=== PATIENT | female | born 1995 | race Caucasian/White ===

== ENCOUNTER 2016-12-12 01:16 | Emergency (ER) | payer OTHER, MEDICAID ==
[~2016-12-12] VITALS: Ht 165.1 cm; Wt 123.8 kg
[~2016-12-12 01:16] MED LIST: PREN29TA PO
--- NOTE | 2016-12-12 03:08 | PD ---
HPI Chief Complaint Contractions Date Seen: Dec 12, 2016 Travel History International Travel<30 Days: No Contact w/Intl Traveler<30Days: No Known Affected Area: No History of Present Illness HPI Pt is a with EDC 12-15-2016 making her 39 weeks and 4 days present. Pt presented to ER at [place] with c/o contractions. Pt was examined and noted to be FT/100% effaced with regular contractions and subsequently transferred here by EMS. Pt states she has been deja all afternoon. she denies any vaginal bleeding or leaking. Active movements. Pt states she had care in [place] before moving to the [place] area. She does not have current care. Para: 0 : 1 Miscarriage: 0 : 0 History Past Medical History Medical History: Denies Significant Hx Past Surgical History Surgical History: No Previous Surgery Family History Family History: Negative Social History Alcohol Use: No Tobacco Use: No Substance Abuse: No Allergies-Medications (Allergen,Severity, Reaction): Uncoded Allergies: seafood (Allergy, Severe, Anaphylaxis, 12/12/16) Home Meds Reported Medications Vit-Iron Carbonyl ( Plus Iron 29-1 mg)1 Tab Tab1 Tab PO DAILY #30 TAB Ref 0 12/12/16 Review of Systems Except as stated in HPI: all other systems reviewed are Neg Physical Exam Narrative GENERAL: Well-nourished, well-developed patient. SKIN: Warm and dry. HEAD: Normocephalic and atraumatic. EYES: No scleral icterus. No injection or drainage. ENT: No nasal drainage noted. Mucous membranes pink. Airway patent. NECK: Supple, trachea midline. No JVD. CARDIOVASCULAR: Regular rate and rhythm without murmurs, gallops, or rubs. RESPIRATORY: Breath sounds equal bilaterally. No accessory muscle use. BREASTS: Bilateral exam showed no masses , no retractions, no nipple discharge. ABDOMEN/GI: Abdomen soft, non-tender, bowel sounds present, no rebound, no guarding Gravid to [-] weeks size Fundal Height: [-] GENITOURINARY: External Genitalia: intact and normal in appearance BUS glands: [-] Cervix: [soft] Dilatation: [1 cm] Effacement: [70%] Station: [- 2] Presentation: [vertex] Membranes: [intact ] Uterine Contractions: [about 10 to 15 minutes] FHT's: Category: [1] Baseline: [130] Reactive: [-] Variability: [moderate] Decels: [none] EXTREMITIES: No cyanosis or edema. BACK: Nontender without obvious deformity. No CVA tenderness. NEUROLOGICAL: Awake and alert. Motor and sensory grossly within normal limits. Five out of 5 muscle strength in all muscle groups. Normal speech. Data Data Vital Signs Reviewed: Yes [facility] Medical Record Reviewed: Yes Interpretation(s) Pt with limited care. Presents with contractions Cervix is 1cm / 70%/ -2 unchanged after 1 hour Diagnosis Diagnosis: Primary Impression: False labor after 37 completed weeks of gestation Additional Impression: Limited care in third trimester Disposition: 01 DISCHARGE HOME Loyd Bravo MD Dec 12, 2016 03:08
[2016-12-12 06:13] LABS: CHLAMYDIA PCR NOT DETECTED (NOT DETECT); NEISSERIA PCR NOT DETECTED (NOT DETECT)
== END 2016-12-12 06:07 | disposition home or self-care (01) ==
LOC: HOBED 01:16
DX: O47.1 False labor at or after 37 completed weeks of gestation (principal); O09.33 Supervision of pregnancy with insufficient antenatal care, third trimester; Z3A.39 39 weeks gestation of pregnancy
CPT/HCPCS: 80053; 81001; 83735; 85025; 86592; 86703; 87081; 87086; 87340; 87491; 87591; 99284; J7050; 36415; 59025; 99285

== ENCOUNTER 2016-12-19 15:37 | Emergency (ER) | payer OTHER, MEDICAID ==
--- NOTE | 2016-12-19 16:25 | PD ---
HPI Chief Complaint Contractions Date Seen: Dec 19, 2016 Time Seen: 16:10 Travel History International Travel<30 Days: No Contact w/Intl Traveler<30Days: No Known Affected Area: No History of Present Illness HPI 21-year-old primigravida at 40 weeks 3 days gestation who presents with possible labor. She denies any leakage of fluid, bleeding or decreased movement. Weeks Gestation: 40 Para: 0 : 1 History Past Medical History Medical History: Denies Significant Hx Obstetric History Obstetric History Limited care in [facility] prior to moving here 2 weeks ago. She reports having an early ultrasound which established her due date. GBS positive Past Surgical History Surgical History: No Previous Surgery Social History Alcohol Use: No Tobacco Use: No Substance Abuse: No Allergies-Medications (Allergen,Severity, Reaction): Uncoded Allergies: seafood (Allergy, Severe, Anaphylaxis, 12/12/16) Home Meds Reported Medications Vit-Iron Carbonyl ( Plus Iron 29-1 mg) 1 Tab Tab, 1 TAB PO DAILY for Nutritional Supplement, #30 TAB 0 Refills 12/12/16 Review of Systems Except as stated in HPI: all other systems reviewed are Neg Physical Exam Narrative GENERAL: Well-nourished, well-developed patient. SKIN: Warm and dry. HEAD: Normocephalic and atraumatic. EYES: No scleral icterus. No injection or drainage. ENT: No nasal drainage noted. Mucous membranes pink. Airway patent. NECK: Supple, trachea midline. No JVD. CARDIOVASCULAR: Regular rate and rhythm without murmurs, gallops, or rubs. RESPIRATORY: Breath sounds equal bilaterally. No accessory muscle use. BREASTS: Bilateral exam showed no masses , no retractions, no nipple discharge. ABDOMEN/GI: Abdomen soft, non-tender, bowel sounds present, no rebound, no guarding Gravid to [-] weeks size Fundal Height: [-39] GENITOURINARY: External Genitalia: intact and normal in appearance BUS glands: [-Negative] Cervix: [-] Dilatation: [-1] Effacement: [-40] Station: [-3-] Presentation: [-] Membranes: [intact] Uterine Contractions: [None-] FHT's: Category: [1-] Baseline: [-] Reactive: [Yes-] Variability: [-] Decels: [-] EXTREMITIES: No cyanosis or edema. BACK: Nontender without obvious deformity. No CVA tenderness. NEUROLOGICAL: Awake and alert. Motor and sensory grossly within normal limits. Five out of 5 muscle strength in all muscle groups. Normal speech. Data Data Vital Signs Reviewed: Yes Group B Strep: Positive MDM Medical Record Reviewed: Yes Narrative Course / MDM Assessment: 40+ week intrauterine not in labor Plan: Labor precautions were reviewed with the patient. She'll follow up as needed. We discussed returning to arrange induction planning if she is not delivered by 41 weeks. Diagnosis Diagnosis: Primary Impression: 40 weeks gestation of Additional Impression: Irregular contractions Disposition: 01 DISCHARGE HOME Condition: Good Rex Francois MD Dec 19, 2016 16:24
== END 2016-12-19 16:56 | disposition home or self-care (01) ==
LOC: HOBED 15:37
DX: O47.1 False labor at or after 37 completed weeks of gestation (principal); Z3A.40 40 weeks gestation of pregnancy
CPT/HCPCS: 59025

== ENCOUNTER 2016-12-22 16:35 | Emergency (ER) | payer OTHER, MEDICAID ==
[2016-12-22] MEDS ORDERED: MONUPAK PO (17:52)
--- NOTE | 2016-12-22 17:52 | PD ---
HPI Chief Complaint Contractions and pressure Date Seen: Dec 22, 2016 Travel History International Travel<30 Days: No Contact w/Intl Traveler<30Days: No Known Affected Area: No History of Present Illness HPI Patient is a 21-year-old white female at 41 weeks with very little care recently moved here from [place]. She states she did have an early ultrasound gave her a due date that would put her at 41 weeks now we have no documentation of that, she complains of contractions and pressure. No bleeding or ruptured membranes. Baby is active. heart rate tracing is reactive and she is deja every 3-4 minutes. Weeks Gestation: 41 Para: 0 : 1 History Social History Narrative Social History Patient recently relocated here from [place] of and very little care but did have an early ultrasound she describes we gave her a due date and put her 41 weeks Alcohol Use: No Tobacco Use: No Substance Abuse: No Allergies-Medications (Allergen,Severity, Reaction): Uncoded Allergies: seafood (Allergy, Severe, Anaphylaxis, 12/12/16) Home Meds Reported Medications Vit-Iron Carbonyl ( Plus Iron 29-1 mg) 1 Tab Tab, 1 TAB PO DAILY for Nutritional Supplement, #30 TAB 0 Refills 12/12/16 Review of Systems General / Constitutional: No: Fever, Weight Gain, Chills, Other Eyes: No: Diploplia, Blurred Vision, Visual changes, Pain, Photophobia HENT: No: Headaches, Vertigo, Lightheadedness Cardiovascular: No: Irregular Rhythm, Chest Pain or Discomfort, Palpitations, Tachycardia, Syncope, Varicosities, Edema, Cyanosis Respiratory: No: Cough, Short of Breath, Other Gastrointestinal: Abdominal Pain, No: Nausea, Vomiting, Diarrhea Genitourinary: No: Decreased Urinary Output, Oliguria Musculoskeletal: No: Limited ROM, Weakness, Cramping, Edema, Pain Skin: No Rash, No Itching, No Dryness, No Lumps, No Change in Pigmentation, No Change in Nails, No Alopecia, No Lesions Neurologic: No: Weakness, Dizziness, Syncope, Focal Abnormalities, Coordination Problem, Headache, Slurred Speech, Seizures Psychiatric: No: Depression, Suicidal Ideations, Homicidal Ideation Endocrine: No: Heat Intolerance, Cold Intolerance, Polydipsia, Polyuria, Other Physical Exam Narrative GENERAL: Well-nourished, well-developed patient. SKIN: Warm and dry. HEAD: Normocephalic and atraumatic. EYES: No scleral icterus. No injection or drainage. ENT: No nasal drainage noted. Mucous membranes pink. Airway patent. NECK: Supple, trachea midline. No JVD. CARDIOVASCULAR: Regular rate and rhythm without murmurs, gallops, or rubs. RESPIRATORY: Breath sounds equal bilaterally. No accessory muscle use. BREASTS: Bilateral exam showed no masses , no retractions, no nipple discharge. ABDOMEN/GI: Abdomen soft, non-tender, bowel sounds present, no rebound, no guarding Gravid to [40-] weeks size Fundal Height: [40-] GENITOURINARY: External Genitalia: intact and normal in appearance BUS glands: [-] Cervix: [-] Dilatation: [1-] Effacement: [-60] Station: [-3] Presentation: [vtx-] Membranes: [intact ] Uterine Contractions: [q 3-4 -] FHT's: Category: [-1] Baseline: [133-] Reactive: [-yes] Variability: [-mod] Decels: [-none] EXTREMITIES: No cyanosis or edema. BACK: Nontender without obvious deformity. No CVA tenderness. NEUROLOGICAL: Awake and alert. Motor and sensory grossly within normal limits. Five out of 5 muscle strength in all muscle groups. Normal speech. Data Data Labs Urine dip showed leukocyte esterase positive moderate with 2+ protein, and positive ketones will treat with Monurol prescription MDM Interpretation(s) Patient is 21-year-old white female at 41 weeks currently unregistered medical care just moved here 2 weeks ago from [place] where she had very little care there. She did have an early ultrasound according her this gave her the due date would put her now at 41 weeks, we have no documentation of any of that and patient doesn't have any either. She complained of contractions and she presented she is deja every for 5 minutes. The heart rate tracing is reactive. Cervix is 160 and -2 vertex and scalp stim a gave us very reactive strip and lots of accelerations with good variability. Urine dip showed positive leukocyte esterase and 2+ protein and her blood pressures are normal. Probable mild UTI Plan Plan to treat the patient's UTI with Monurol prescription, will set patient up for induction of labor's following Tuesday just 5 days from now. With the patient presented the night before for Cervidil or Cytotec and then induction of labor the following day. Diagnosis Diagnosis: Primary Impression: False labor after 37 completed weeks of gestation Additional Impression: UTI (urinary tract infection) during Disposition: 01 DISCHARGE HOME Condition: Stable Scripts Fosfomycin Packet (Monurol Packet) 3 Gm Powderpack 3 GM PO ONCE for Urinary Symptom Managemen for 1 Day, PKT Prov: Alf Baca II, MD 12/22/16 Alf Baca II, MD Dec 22, 2016 17:52
== END 2016-12-22 17:58 | disposition home or self-care (01) ==
LOC: HOBED 16:35
DX: O47.1 False labor at or after 37 completed weeks of gestation (principal); O23.43 Unspecified infection of urinary tract in pregnancy, third trimester; Z3A.41 41 weeks gestation of pregnancy
CPT/HCPCS: 59025; 84112

== ENCOUNTER 2016-12-26 21:18 | Inpatient (IN) | payer MEDICAID, OTHER ==
[2016-12-26] VITALS (7 sets, daily range): BP systolic 117–140; BP diastolic 69–103; PULSE 78–99; RESP 20; TEMP 98.4
[~2016-12-26] VITALS: Ht 165.1 cm; Wt 123.8 kg
[~2016-12-26 21:18] MED LIST changes: +MONUPAK PO
[2016-12-26] MEDS ORDERED: LACTATED RINGER'S 1000 ML INJ 1,000 ML IV PRN (21:46)
--- NOTE | 2016-12-26 21:46 | HHI.HP ---
HPI Chief Complaint Elective admission for IOL. 41.4 weeks gestation Travel History International Travel<30 Days: No Contact w/Intl Traveler<30Days: No Known Affected Area: No History of Present Illness HPI Pt is a 21 yo , here for IOL. EDC 01-15-2017. Pt has minimal care in [place], and only seen at OB triage since arriving her 3 weeks ago. Denies any current contractions. No vaginal bleeding or leaking. GBS positive. Admits to movements. Weeks Gestation: 41 Para: 0 : 1 History Past Medical History Medical History: Denies Significant Hx Past Surgical History Surgical History: No Previous Surgery Family History Family History: Negative Social History Narrative Social History Minimal care. Pt states she had a few visits in [place]. Has been in [place] past 3 weeks and only seen at OB Triage. Alcohol Use: No Tobacco Use: No Substance Abuse: No Allergies-Medications (Allergen,Severity, Reaction): Uncoded Allergies: seafood (Allergy, Severe, Anaphylaxis, 12/12/16) Home Meds Active Scripts Fosfomycin Packet (Monurol Packet) 3 Gm Powderpack, 3 GM PO ONCE for Urinary Symptom Managemen for 1 Day, PKT Prov:Alf Baca II, MD 12/22/16 Reported Medications Vit-Iron Carbonyl ( Plus Iron 29-1 mg) 1 Tab Tab, 1 TAB PO DAILY for Nutritional Supplement, #30 TAB 0 Refills 12/12/16 Review of Systems Except as stated in HPI: all other systems reviewed are Neg Physical Exam Narrative GENERAL: Well-nourished, well-developed patient. SKIN: Warm and dry. HEAD: Normocephalic and atraumatic. EYES: No scleral icterus. No injection or drainage. ENT: No nasal drainage noted. Mucous membranes pink. Airway patent. NECK: Supple, trachea midline. No JVD. CARDIOVASCULAR: Regular rate and rhythm without murmurs, gallops, or rubs. RESPIRATORY: Breath sounds equal bilaterally. No accessory muscle use. BREASTS: Bilateral exam showed no masses , no retractions, no nipple discharge. ABDOMEN/GI: Abdomen soft, non-tender, bowel sounds present, no rebound, no guarding Gravid to [41] weeks size Fundal Height: [39] GENITOURINARY: External Genitalia: intact and normal in appearance BUS glands: [wnl] Cervix: [soft-] Dilatation: [1cm-] Effacement: [50%-] Station: [-3] Presentation: [vertex] Membranes: [intact] Uterine Contractions: [4-5 minutes] FHT's: Category: [1] Baseline: [140s] Reactive: [-] Variability: [minimal] Decels: [-] EXTREMITIES: No cyanosis or edema. BACK: Nontender without obvious deformity. No CVA tenderness. NEUROLOGICAL: Awake and alert. Motor and sensory grossly within normal limits. Five out of 5 muscle strength in all muscle groups. Normal speech. Caprini VTE Risk Assessment Caprini VTE Risk Assessment: No/Low Risk (score <= 1) Caprini Risk Assessment Model Point Value = 1 Point Value = 2 Point Value = 3 Point Value = 5 Age 41-60 Minor surgery BMI > 25 kg/m2 Swollen legs Varicose veins or History of unexplained or recurrent spontaneous Oral contraceptives or hormone replacement Sepsis (< 1 month) Serious lung disease, including pneumonia (< 1 month) Abnormal pulmonary function Acute myocardial infarction Congestive heart failure (< 1 month) History of inflammatory bowel disease Medical patient at bed rest Age 61-74 Arthroscopic surgery Major open surgery (> 45 min) Laparoscopic surgery (> 45 min) Malignancy Confined to bed (> 72 hours) Immobilizing plaster cast Central venous access Age >= 75 History of VTE Family history of VTE Factor V Leiden Prothrombin [id number] Lupus anticoagulant Anticardiolipin antibodies Elevated serum homocysteine Heparin-induced thrombocytopenia Other congenital or acquired thrombophilia Stroke (< 1 month) Elective arthroplasty Hip, pelvis, or leg fracture Acute spinal cord injury (< 1 month) Prophylaxis Regimen Total Risk Factor Score Risk Level Prophylaxis Regimen 0-1 Low Early ambulation 2 Moderate Order ONE of the following: *Sequential Compression Device (SCD) *Heparin 5000 units SQ BID 3-4 Higher Order ONE of the following medications: *Heparin 5000 units SQ TID *Enoxaparin/Lovenox 40 mg SQ daily (WT < 150 kg, CrCl > 30 mL/min) *Enoxaparin/Lovenox 30 mg SQ daily (WT < 150 kg, CrCl > 10-29 mL/min) *Enoxaparin/Lovenox 30 mg SQ BID (WT < 150 kg, CrCl > 30 mL/min) AND/OR *Sequential Compression Device (SCD) 5 or more Highest Order ONE of the following medications: *Heparin 5000 units SQ TID (Preferred with Epidurals) *Enoxaparin/Lovenox 40 mg SQ daily (WT < 150 kg, CrCl > 30 mL/min) *Enoxaparin/Lovenox 30 mg SQ daily (WT < 150 kg, CrCl > 10-29 mL/min) *Enoxaparin/Lovenox 30 mg SQ BID (WT < 150 kg, CrCl > 30 mL/min) AND *Sequential Compression Device (SCD) Data Data Vital Signs Reviewed: Yes Group B Strep: Positive Assessment/Plan Assessment and Plan Post-term IOL 41 weeks and 4 days Dash too frequently ( 4-5minutes) for cervical ripening using Cervidil or Cytotec. Plan Pitocin. Loyd Bravo MD Dec 26, 2016 21:46
[2016-12-26 22:00] LABS: AUTOMATED NEUTROPHIL # 7.5 TH/MM3 (1.8-7.7); BASOPHIL % 0.2 % (0.0-2.0); EOSINOPHIL # 0.1 TH/MM3 (0-0.4); EOSINOPHIL % 0.9 % (0.0-4.0); HEMATOCRIT 30.2 % (35.0-46.0); HEMO FLAGS DIFF FINAL; LYMPH % 12.2 % (9.0-44.0); LYMPHOCYTE # 1.1 TH/MM3 (1.0-4.8); MEAN CELL VOLUME 80.7 FL (80.0-100.0); MEAN CORPUSCULAR HEMOGLOBIN 27.3 PG (27.0-34.0); MEAN CORPUSCULAR HGB CONC 33.8 % (32.0-36.0); MONO % 6.2 % (0.0-8.0); NEUT % 80.5 % (16.0-70.0); PLATELET COUNT 186 TH/MM3 (150-450); RED BLOOD COUNT 3.74 MIL/MM3 (4.00-5.30); RED CELL DISTRIBUTION WIDTH 14.9 % (11.6-17.2); WHITE BLOOD COUNT 9.3 TH/MM3 (4.0-11.0)
[2016-12-26] MEDS ORDERED: MINERAL OIL 10 ML VIAL TOPICAL PRN (22:00)
[2016-12-26] MEDS ORDERED: LIDOCAINE HCL 1% 50 ML VIAL I-DERMAL PRN (22:00)
[2016-12-26] MEDS ORDERED: CITRIC ACID-SODIUM CITRATE LIQ 30 ML UDC PO SCH (22:00)
[2016-12-26] MEDS ORDERED: OXYTOCIN 30 UNITS-500ML PREMIX 500 ML IV SCH (22:00)
[2016-12-26] MEDS ORDERED: OXYTOCIN 30 UNITS-500ML PREMIX 500 ML IV ONE (22:00)
[2016-12-26] MEDS ORDERED: PENICILLIN G POTASSIUM INJ 5,000,000 UNITS in SODIUM CHLORIDE 0.9% INJ 100 ML IV ONE (22:00)
[2016-12-26] MEDS ORDERED: LIDOCAINE HCL 1% 50 ML VIAL INFIL PRN (22:00)
[2016-12-26] MEDS ORDERED: SODIUM CHLORID 0.9% 500 ML INJ 500 ML IV PRN (22:00)
[2016-12-26 22:03] LABS: BLOOD, URINE SMALL (NEG); CALCIUM OXALATE CRYSTALS,URINE FEW /hpf; COMMENT (UR) CULTURE INDICATED; CULTURE IF INDICATED CULTURE INDICATED; GLUCOSE,URINE NEG (NEG); KETONE, URINE NEG (NEG); MUCUS URINE FEW /lpf (OCC); NITRITE,URINE NEG (NEG); SQUAMOUS EPITHELIAL CELL URINE 2 /hpf (0-5); URINE COLOR YELLOW (YELLW/STRAW)
[2016-12-26] MEDS ORDERED: SODIUM CHLOR 0.9% 1000 ML INJ 1,000 ML IV PRN (22:06)
--- NOTE | 2016-12-26 22:27 | PD.LABORPN ---
Subjective Subjective Pt comfortable Objective Objective Pelvic Exam: Cervix: [soft] Dilatation: [1cm] Effacement: [50%] Station: [-3] Presentation: [vertex] Membranes: [intact] Uterine Contractions: [4-5 minutes] FHT's: Category: [1-] Baseline: [140s] Reactive: [-] Variability: [-] Decels: [none] Wolf balloon cervical ripening done. F27 folet tip inserted past cervical internal os, and balloon inflated with 25cc saline. balloon then pulled back against cervix and taped to left thigh. Weeks Gestation: 41 Gest Age Assessed Date: Dec 26, 2016 Gest Age Assessed Time: 20:00 Pt started active labor?: No Medical induction of labor?: No Artificial rupture of membrane: No Assessment/Plan Assessment and Plan 41.4 weeks. Term IOL. Dash too frequently for Misoprostil or Cervidil. Cervical balloon ripening statrted. Expectant. Will hold Pitocin for now. Will start GBS prophylaxis at midnight. Loyd Bravo MD Dec 26, 2016 22:27
[2016-12-26] MEDS ORDERED: fentaNYL 2MCG-BUPIV 0.125% INJ 100 ML ONE (23:22)
[2016-12-27] VITALS (87 sets, daily range): BP systolic 102–155; BP diastolic 47–111; PULSE 66–135; RESP 18–20; TEMP 98.1–99.2
[2016-12-27] MEDS ORDERED: PENICILLIN G POTASSIUM INJ 5,000,000 UNITS in SODIUM CHLORIDE 0.9% INJ 100 ML IV ONE ×2
[2016-12-27] MEDS: LACTATED RINGER'S 1000 ML INJ 1,000 ML IV SCH ×3 (00:45→07:35)
[2016-12-27] MEDS ORDERED: PENICILLIN G POTASSIUM INJ 2,500,000 UNITS in SODIUM CHLORIDE 0.9% INJ 100 ML IV SCH (02:00)
[2016-12-27] MEDS: PENICILLIN G POTASSIUM INJ 2,500,000 UNITS in SODIUM CHLORIDE 0.9% INJ 100 ML IV SCH ×4 (04:00→16:00)
--- NOTE | 2016-12-27 04:52 | PD.LABORPN ---
Subjective Subjective Comfortable with epidural Objective Vital Signs Vital Signs Date Time Temp Pulse Resp B/P (MAP) Pulse Ox O2 Delivery O2 Flow Rate FiO2 12/27/16 04:16 135 109/71 (84) 12/27/16 04:07 111/64 (80) 12/27/16 04:07 84 12/27/16 04:03 98.6 20 12/27/16 03:31 76 108/62 (77) 12/27/16 03:01 74 102/47 (65) 12/27/16 02:31 82 119/60 (79) 12/27/16 02:10 20 12/27/16 02:01 92 111/60 (77) 12/27/16 01:30 99.1 12/27/16 01:30 20 12/27/16 01:29 86 114/60 (78) 12/27/16 00:19 91 117/54 (75) 12/26/16 23:55 88 12/26/16 23:51 92 124/73 (90) 12/26/16 23:46 80 127/69 (88) 12/26/16 23:41 85 135/79 (97) 12/26/16 23:35 95 117/103 (108) 12/26/16 23:32 99 140/85 (103) 12/26/16 23:22 20 12/26/16 23:00 98.4 12/26/16 23:00 78 20 124/74 (91) Objective Pelvic Exam: Cervix: [soft] Dilatation: [4cm] Effacement: [80%] Station: [-2 to-3] Presentation: [vertex] Membranes: [ ruptured] AROM done at 04:40 with AmniHook. meconium stained return.IUPC inserted Uterine Contractions: [1-2 minutes] Pitocin at 1mu/min FHT's: Category: [1] Baseline: [130s] Reactive: [-] Variability: [-] Decels: [none] Weeks Gestation: 41 Gest Age Assessed Date: Dec 26, 2016 Gest Age Assessed Time: 20:00 Pt started active labor?: Yes Active labor start date: Dec 27, 2016 Active labor start time: 04:00 Medical induction of labor?: Yes Medical induction start date: Dec 26, 2016 Medical induction start time: 22:00 Artificial rupture of membrane: Yes Artificial ROM date: Dec 27, 2016 Artifical ROM time: 04:20 Assessment/Plan Assessment and Plan Postterm IOL. /maternal status reassuring. Meconium stained amniotic fluid at AROM. Continue Pitocin per protocol. Continue PCN for GBS prophylaxis Loyd Bravo MD Dec 27, 2016 04:52
[2016-12-27] MEDS ORDERED: fentaNYL 2MCG-BUPIV 0.125% INJ 100 ML ONE ×2 (06:23→12:51)
--- NOTE | 2016-12-27 09:53 | PD.LABORPN ---
Subjective Subjective Pt seen this am. Pt up in bed, having pain with contractions. Epidural in place. Objective Vital Signs Vital Signs Date Time Temp Pulse Resp B/P (MAP) Pulse Ox O2 Delivery O2 Flow Rate FiO2 12/27/16 09:35 96 12/27/16 09:30 98 113/68 (83) 12/27/16 09:30 101 113/68 (83) 12/27/16 09:25 93 12/27/16 09:24 20 12/27/16 09:20 98 12/27/16 09:15 110 12/27/16 09:05 91 12/27/16 09:00 92 131/81 (98) 12/27/16 09:00 88 12/27/16 08:55 90 12/27/16 08:50 99 12/27/16 08:45 101 12/27/16 08:30 79 20 133/74 (93) 12/27/16 08:30 98.1 12/27/16 08:15 20 12/27/16 08:01 81 134/77 (96) 12/27/16 07:34 90 140/78 (98) 12/27/16 07:30 82 125/91 (102) 12/27/16 07:09 20 12/27/16 07:00 79 123/72 (89) 12/27/16 06:30 78 119/64 (82) 12/27/16 06:23 20 12/27/16 05:58 85 109/57 (74) 12/27/16 05:58 98.7 20 12/27/16 05:30 110/57 (74) 12/27/16 05:01 132 127/97 (107) 12/27/16 05:00 20 12/27/16 04:48 97 12/27/16 04:48 107/56 (73) 12/27/16 04:16 135 109/71 (84) 12/27/16 04:07 111/64 (80) 12/27/16 04:07 84 12/27/16 04:03 98.6 20 12/27/16 03:31 76 108/62 (77) 12/27/16 03:01 74 102/47 (65) 12/27/16 02:31 82 119/60 (79) 12/27/16 02:10 20 12/27/16 02:01 92 111/60 (77) Objective Pelvic Exam: Cervix: [-] Dilatation: [-] Effacement: [-] Station: [-] Presentation: [-] Membranes: [intact or ruptured] Uterine Contractions: [-] FHT's: Category: [-] Baseline: [-] Reactive: [-] Variability: [-] Decels: [-] Weeks Gestation: 41 Gest Age Assessed Date: Dec 26, 2016 Gest Age Assessed Time: 20:00 Pt started active labor?: Yes Active labor start date: Dec 27, 2016 Active labor start time: 04:00 Medical induction of labor?: Yes Medical induction start date: Dec 26, 2016 Medical induction start time: 22:00 Artificial rupture of membrane: Yes Artificial ROM date: Dec 27, 2016 Artifical ROM time: 04:20 Assessment/Plan Assessment and Plan 21 yo in active labor. Pelvic exam: AROM @ 4:39AM meconium stain fluid, 6 , 90%, -2 IUP -continue expectant management -GBS positive, c/w PNC -pitocin @ 1mu/min -pt on epidural -plan for vaginal delivery Katy Bustamante MD R1 Dec 27, 2016 09:53
[2016-12-27] MEDS ORDERED: DIPHTH/TETANUS/ACEL PERTUSSIS (BOOSTER) 0.5 ML VIAL/PFS IM ONE (16:00)
[2016-12-27] MEDS ORDERED: MEASLES, MUMPS, RUBELLA VACCINE 0.5 ML VIAL SQ ONE (16:00)
[2016-12-27] MEDS ORDERED: WITCH HAZEL 50%/GLYCERIN 12.5% 40 PAD JAR TOPICAL PRN (16:30)
[2016-12-27] MEDS ORDERED: ALUMINUM/MAGNESIUM/SIMETH 30 ML CUP PO PRN (16:30)
[2016-12-27] MEDS ORDERED: ZOLPIDEM TARTRATE 5 MG TAB PO PRN (16:30)
[2016-12-27] MEDS ORDERED: oxyCODONE/ACETAMINOPHEN 5 MG/325 MG TAB PO PRN ×2 (16:30)
[2016-12-27] MEDS ORDERED: SODIUM CHLORIDE 0.9% FLUSH 10 ML FLUSH IV FLUSH PRN (16:30)
[2016-12-27] MEDS ORDERED: BENZOCAINE 20% TOPICAL SPRAY 60 ML CAN TOPICAL PRN (16:30)
[2016-12-27] MEDS ORDERED: DOCUSATE SODIUM 50 MG/SENNA 8.6 MG TAB PO PRN (16:30)
[2016-12-27] MEDS ORDERED: ONDANSETRON ODT 4 MG TAB PO PRN (16:30)
[2016-12-27] MEDS ORDERED: ACETAMINOPHEN 325 MG TAB PO PRN (16:30)
[2016-12-27] MEDS ORDERED: OXYTOCIN 30 UNITS-500ML PREMIX 500 ML IV SCH (16:30)
--- NOTE | 2016-12-27 16:32 | PD.OB.DELI ---
Weeks gestation: 41 Gest age assessed date: Dec 26, 2016 Gest age assessed time: 20:00 Pt started active labor?: Yes Active labor start date: Dec 27, 2016 Active labor start time: 04:00 Medical induction of labor?: Yes Medical induction start date: Dec 26, 2016 Medical induction start time: 22:00 Artificial rupture of membrane: Yes Artificial ROM date: Dec 27, 2016 Artifical ROM time: 04:20 Anesthesia: Epidural Episiotomy: Midline Vaginal Delivery: Normal Presentation: Occiput anterior Nuchal Cord: x1 Delayed cord clamping (45 sec): Yes : Male Delivery date: Dec 27, 2016 Delivery time: 15:53 One Minute : 8 Five Minute : 9 Weight: [id number] Placenta: Spontaneous delivery, Intact, 3 vessel cord Laceration: Episiotomy, 2 deg Repair: Chromic running Estimated blood loss: 250ml Additional Information assisted by Katy Dinero MD Dec 27, 2016 16:32
[2016-12-27] MEDS: IBUPROFEN 600 MG TAB PO PRN (17:31)
[2016-12-27] MEDS ORDERED: SODIUM CHLORIDE 0.9% FLUSH 10 ML FLUSH IV FLUSH SCH (21:00)
[2016-12-28 08:36] VITALS: BP 103/77; PULSE 97; RESP 20; TEMP 98.7
--- NOTE | 2016-12-28 11:47 | HHI.OB ---
Subjective Post Day: 1 Remarks Pt seen and examined this morning. day # 1 AFVSS overnight. Decreased lochia. Denies dysuria. No breast tenderness. She is feeding the baby via bottle. Appetite good. No nausea or vomiting. Patient has not had a bowel movement, but endorses bowel gas. Ambulating well. Denies calf pain or shortness of breath. Otherwise, she is doing well this morning and has no other concerns. Objective Vitals/I&O Vital Signs Date Time Temp Pulse Resp B/P (MAP) Pulse Ox O2 Delivery O2 Flow Rate FiO2 12/28/16 08:36 98.7 12/28/16 08:36 97 20 103/77 (86) 12/27/16 19:55 98.5 70 18 128/60 (82) 12/27/16 18:35 98.3 81 18 142/73 (96) 12/27/16 17:31 80 132/78 (96) 12/27/16 17:19 20 12/27/16 17:18 66 143/71 (95) 12/27/16 17:15 20 12/27/16 17:15 99.2 12/27/16 17:01 83 143/73 (96) 12/27/16 16:52 20 12/27/16 16:46 85 146/70 (95) 12/27/16 16:45 20 12/27/16 16:31 89 145/88 (107) 12/27/16 16:16 84 155/83 (107) 12/27/16 16:03 86 153/71 (98) 12/27/16 15:31 78 142/71 (94) 12/27/16 15:30 20 12/27/16 15:02 96 139/76 (97) 12/27/16 15:01 110 134/111 (119) 12/27/16 14:00 91 138/81 (100) 12/27/16 13:30 98 135/81 (99) 12/27/16 13:25 96 12/27/16 13:20 97 12/27/16 13:15 95 12/27/16 13:15 98.8 12/27/16 13:12 20 12/27/16 13:12 96 142/84 (103) 12/27/16 13:05 103 12/27/16 13:00 97 12/27/16 12:45 104 12/27/16 12:40 96 12/27/16 12:35 89 12/27/16 12:30 93 139/89 (106) 12/27/16 12:30 93 12/27/16 12:25 90 12/27/16 12:20 89 12/27/16 12:15 99 12/27/16 12:00 96 12/27/16 12:00 98 142/89 (106) 12/27/16 11:55 109 12/27/16 11:50 124 12/27/16 11:45 107 Objective Remarks GENERAL: Well-nourished, well-developed patient. CARDIOVASCULAR: Regular rate and rhythm without murmurs, gallops, or rubs. RESPIRATORY: Breath sounds equal bilaterally. No accessory muscle use. ABDOMEN/GI: Abdomen soft, non-tender. Fundus: Firm, non-tender at umbilicus. GENITOURINARY: Light to moderate bleeding. EXTREMITIES: No cyanosis or edema, non-tender, without signs of DVT. Medications and IVs Current Medications Medications (Trade) Dose Ordered Sig/Joyce Route Start Time Stop Time Status Last Admin Lactated Ringer's 1,000 ml @ 125 mls/hr Q8H IV 12/26/16 21:46 12/27/16 07:35 Lactated Ringer's 1,000 ml @ 3,000 mls/hr Q20M PRN IV 12/26/16 21:46 Sodium Chloride 500 ml @ 1,000 mls/hr ONCE PRN IV 12/26/16 22:00 12/28/16 21:59 Sodium Chloride 1,000 ml @ 100 mls/hr Q10H PRN IV 12/26/16 22:06 (Xylocaine 1% Inj (50 ml)) 0.1 ml UNSCH X1 PRN I-DERMAL 12/26/16 22:00 12/29/16 21:59 (Bicitra Liq) 30 ml EM[employer]ICINE MEDICAL DIRECTOR PO 12/26/16 22:00 12/30/16 21:59 (fentaNYL INJ) 50 mcg Q1H PRN IV PUSH 12/26/16 22:00 (fentaNYL INJ) 100 mcg Q1H PRN IV PUSH 12/26/16 22:00 (Xylocaine 1% Inj (50 ml)) 10 ml UNSCH X1 PRN INFIL 12/26/16 22:00 12/28/16 21:59 (Muri-Lube Oil) 10 ml UNSCH PRN TOPICAL 12/26/16 22:00 Oxytocin 500 ml @ 0 mls/hr TITRATE IV 12/26/16 22:00 12/27/16 00:49 (NS Flush) 2 ml BID IV FLUSH 12/27/16 21:00 (NS Flush) 2 ml UNSCH PRN IV FLUSH 12/27/16 16:30 (Tylenol) 650 mg Q4H PRN PO 12/27/16 16:30 (Motrin) 600 mg Q6H PRN PO 12/27/16 16:30 12/27/16 17:31 (Percocet 5-325 Mg) 1 tab Q4H PRN PO 12/27/16 16:30 (Percocet 5-325 Mg) 2 tab Q4H PRN PO 12/27/16 16:30 (Americaine 20% Top Spr) 1 spray Q4H PRN TOPICAL 12/27/16 16:30 12/27/16 17:32 (Tucks Pads) 1 applic QID PRN TOPICAL 12/27/16 16:30 12/27/16 17:32 (Samina-Colace) 2 tab Q12H PRN PO 12/27/16 16:30 (Ambien) 5 mg HS PRN PO 12/27/16 16:30 (Mag-Al Plus Susp Liq) 15 ml Q8H PRN PO 12/27/16 16:30 (Zofran Odt) 4 mg Q6H PRN PO 12/27/16 16:30 Assessment/Plan Problem List: (1) Spontaneous vaginal delivery ICD Codes: O80 - Encounter for full-term uncomplicated delivery Assessment and Plan 21 y/o female who is day # 1 s/p . -Continue routine care. -Motrin PRN pain. -Encouraged OOB. Advised pelvic rest for 6 wks. -Re: ctrl, she would like to discuss her options at her follow-up appointment. -Anticipate discharge tomorrow, 12/29. marko Baca MD Discharge Planning Likely tomorrow, 12/29, pending medical course. Yony Botello MD R2 Dec 28, 2016 11:47
[2016-12-28] MEDS: IBUPROFEN 600 MG TAB PO PRN (21:11)
[2016-12-28 21:15] VITALS: BP 136/79; PULSE 90; RESP 16; TEMP 99.1
[2016-12-29] MEDS ORDERED: SENN1TAB PO (07:11)
[2016-12-29] MEDS ORDERED: IBUP-232 PO (07:11)
--- NOTE | 2016-12-29 07:12 | HHI.DCPOC ---
Discharge Care Plan Diagnosis: (1) Spontaneous vaginal delivery Report Symptoms to Your Doctor -Temperature above 100.5 degrees -Redness, of incision or excessive or foul smelling drainage -Unusual pain or calf pain -Increased vaginal bleeding -Painful or difficulty urinating -Feelings of extreme sadness or anxiety after 2 weeks Goals to Promote Your Health * To prevent worsening of your condition and complications * To maintain your health at the optimal level Directions to Meet Your Goals Take your medications as prescribed Follow your dietary instruction Follow activity as directed Ensure plenty of rest for recovery Drink fluids for hydration Keep your appointments as scheduled Take your immunizations and boosters as scheduled If your symptoms worsen call your PCP, if no PCP go to Urgent Care Center or Emergency Room Smoking is Dangerous to Your Health. Avoid second hand smoke Call the 24-hour crisis hotline for domestic abuse at Yony Botello MD R2 Dec 29, 2016 07:12
--- NOTE | 2016-12-29 08:59 | HHI.OB ---
Subjective Post Day: 2 Remarks Pt seen and examined this morning. day # 2 AFVSS overnight. Decreased lochia. Denies dysuria. No breast tenderness. She is feeding the baby via bottle. Appetite good. No nausea or vomiting. Patient endorses bowel movement. Ambulating well. Denies calf pain or shortness of breath. Otherwise, she is doing well this morning. Her only other concern is a mild sore throat with cough. Objective Vitals/I&O Vital Signs Date Time Temp Pulse Resp B/P (MAP) Pulse Ox O2 Delivery O2 Flow Rate FiO2 12/28/16 21:15 99.1 90 16 136/79 (98) Objective Remarks GENERAL: Well-nourished, well-developed patient. HEENT: Atraumatic, normocephalic with EOMI. Oropharynx clear without erythema or exudate. No palpable LAD. No JVD appreciated. CARDIOVASCULAR: Regular rate and rhythm without murmurs, gallops, or rubs. RESPIRATORY: Breath sounds equal bilaterally. No accessory muscle use. ABDOMEN/GI: Abdomen soft, non-tender. Fundus: Firm, non-tender at umbilicus. GENITOURINARY: Light to moderate bleeding. EXTREMITIES: No cyanosis or edema, non-tender, without signs of DVT. Medications and IVs Current Medications Medications (Trade) Dose Ordered Sig/Joyce Route Start Time Stop Time Status Last Admin Lactated Ringer's 1,000 ml @ 125 mls/hr Q8H IV 12/26/16 21:46 12/27/16 07:35 Lactated Ringer's 1,000 ml @ 3,000 mls/hr Q20M PRN IV 12/26/16 21:46 Sodium Chloride 1,000 ml @ 100 mls/hr Q10H PRN IV 12/26/16 22:06 (Xylocaine 1% Inj (50 ml)) 0.1 ml UNSCH X1 PRN I-DERMAL 12/26/16 22:00 12/29/16 21:59 (Bicitra Liq) 30 ml [employer]ER PO 12/26/16 22:00 12/30/16 21:59 (fentaNYL INJ) 50 mcg Q1H PRN IV PUSH 12/26/16 22:00 (fentaNYL INJ) 100 mcg Q1H PRN IV PUSH 12/26/16 22:00 (Muri-Lube Oil) 10 ml UNSCH PRN TOPICAL 12/26/16 22:00 Oxytocin 500 ml @ 0 mls/hr TITRATE IV 12/26/16 22:00 12/27/16 00:49 (NS Flush) 2 ml BID IV FLUSH 12/27/16 21:00 (NS Flush) 2 ml UNSCH PRN IV FLUSH 12/27/16 16:30 (Tylenol) 650 mg Q4H PRN PO 12/27/16 16:30 (Motrin) 600 mg Q6H PRN PO 12/27/16 16:30 12/28/16 21:11 (Percocet 5-325 Mg) 1 tab Q4H PRN PO 12/27/16 16:30 (Percocet 5-325 Mg) 2 tab Q4H PRN PO 12/27/16 16:30 12/28/16 21:11 (Americaine 20% Top Spr) 1 spray Q4H PRN TOPICAL 12/27/16 16:30 12/27/16 17:32 (Tucks Pads) 1 applic QID PRN TOPICAL 12/27/16 16:30 12/27/16 17:32 (Samina-Colace) 2 tab Q12H PRN PO 12/27/16 16:30 (Ambien) 5 mg HS PRN PO 12/27/16 16:30 (Mag-Al Plus Susp Liq) 15 ml Q8H PRN PO 12/27/16 16:30 (Zofran Odt) 4 mg Q6H PRN PO 12/27/16 16:30 Assessment/Plan Problem List: (1) Spontaneous vaginal delivery ICD Codes: O80 - Encounter for full-term uncomplicated delivery Assessment and Plan 21 y/o female who is day # 2 s/p . 1. -Continue routine care. -Motrin PRN pain. -Encouraged OOB. Advised pelvic rest for 6 wks. -Re: ctrl, she would like to discuss her options at her follow-up appointment. -Anticipate discharge today with baby. 2. Cough -Patient afebrile with vital signs stable. Patient endorses mild cough with sputum production. -Oropharynx examination within normal limits. Tonsils without erythema or exudate. -Kelsie Duffy ordered -Encouraged oral hydration -Instructed patient to follow-up with PCP if her symptoms do not resolve, she becomes febrile, or is unable to tolerate her diet. marko Santos MD Discharge Planning Today with baby. Yony Botello MD R2 Dec 29, 2016 08:59
[2016-12-29] MEDS ORDERED: BENZONATATE 100 MG CAP PO PRN (09:00)
[2016-12-29 10:25] VITALS: BP 118/78; PULSE 91; RESP 18; TEMP 99.5
[2016-12-29] MEDS: IBUPROFEN 600 MG TAB PO PRN (10:38)
[2017-01-03 07:46] LABS: ECSTASY (MDMA) UR NEG (NEG); HEROIN (6-ACETYLMORPHINE) UR NEG (NEG); K2 SPICE UR NEG (NEG); OBMETHADONE UR NEG (NEG); PHENCYCLIDINE URINE NEG (NEG)
[2017-01-03 07:47] LABS: BATH SALTS (MDPV) UR NEG (NEG)
[2017-01-03 07:48] LABS: GABAPENTIN UR NEG (NEG); HYDROMORPHONE U NEG (NEG)
== END 2016-12-29 13:40 | disposition home or self-care (01) | DRG 775 ==
LOC: H2EB 21:18 → H1EA 12-27 18:15
PROVIDERS: ADMIT Obstetrics & Gynecology; ATTEND Obstetrics & Gynecology
PROC: 0U7C7ZZ Dilation of Cervix, Via Natural or Artificial Opening (ICD-10-PCS; 2016-12-26)
PROC: 3E0S3CZ (ICD-10-PCS; 2016-12-26)
PROC: 00HU33Z Insertion of Infusion Device into Spinal Canal, Percutaneous Approach (ICD-10-PCS; 2016-12-26)
PROC: 10E0XZZ Delivery of Products of Conception, External Approach (ICD-10-PCS; principal; 2016-12-27)
PROC: 0KQM0ZZ Repair Perineum Muscle, Open Approach (ICD-10-PCS; 2016-12-27)
PROC: 0W8NXZZ Division of Female Perineum, External Approach (ICD-10-PCS; 2016-12-27)
PROC: 10907ZC Drainage of Amniotic Fluid, Therapeutic from Products of Conception, Via Natural or Artificial Opening (ICD-10-PCS; 2016-12-27)
PROC: 10H07YZ Insertion of Other Device into Products of Conception, Via Natural or Artificial Opening (ICD-10-PCS; 2016-12-27)
DX: O48.0 Post-term pregnancy (principal); O99.824 Streptococcus B carrier state complicating childbirth; O70.1 Second degree perineal laceration during delivery; O09.33 Supervision of pregnancy with insufficient antenatal care, third trimester; O99.89 Other specified diseases and conditions complicating pregnancy, childbirth and the puerperium; R05 Cough; Z37.0 Single live birth; Z3A.41 41 weeks gestation of pregnancy
CPT/HCPCS: 59025; 80307; 81001; 85025; 85461; 86850; 86900; 86901; 87086; 90384; 90715; G0481; J2540; J2590; J2790; J7120